=== PATIENT | male | born 1960 | race Caucasian/White ===

== ENCOUNTER 2017-08-03 08:49 | Emergency (ER) | payer BC ==
[~2017-08-03] VITALS: Ht 172.7 cm; Wt 97.5 kg
[2017-08-03] MEDS ORDERED: BP MEDS (08:58)
[2017-08-03] MEDS ORDERED: CRESTOR (08:58)
[2017-08-03] MEDS ORDERED: INVOCANA (08:58)
--- NOTE | 2017-08-03 09:15 | NUR ---
Dr. Roca at bedside for MSE.
[2017-08-03] MEDS ORDERED: ONDANSETRON 4 MG/2 ML VIAL IV ONE (09:30)
[2017-08-03] MEDS ORDERED: IV NORMAL SALINE 1000 ML BAG IV ONE (09:30)
[2017-08-03] MEDS ORDERED: ONDANSETRON 4 MG/2 ML VIAL ONE (09:40)
[2017-08-03 10:00] LABS: BASOPHILS % (AUTO) 0.3 % (0.0-2.0); HEMATOCRIT 56.2 % (36.7-47.1); LYMPHOCYTES # (AUTO) 0.3 K/uL (20.0-40.0); LYMPHOCYTES % (AUTO) 1.5 % (20.5-51.5); MEAN CORPUSCULAR HEMOGLOBIN 28.7 uug (23.8-33.4); MEAN CORPUSCULAR HGB CONC 34 g/dL (32.5-36.3); MEAN CORPUSCULAR VOLUME 84.9 fL (73.0-96.2); MONOCYTES # (AUTO) 0.4 K/uL (2.0-10.0); MONOCYTES % (AUTO) 2.1 % (0.0-11.0); NEUTROPHILS # (AUTO) 16.7 K/uL (1.8-8.9); NEUTROPHILS % (AUTO) 96.1 % (38.5-71.5); PLATELET COUNT (AUTO) 150 K/uL (152-348); WHITE BLOOD COUNT (AUTO) 17.4 K/uL (3.6-10.2)
[2017-08-03 10:01] LABS: RED BLOOD CELL COUNT(AUTO) 6.62 MIL/uL (4.06-5.63)
[2017-08-03 10:05] LABS: CREATININE 1.5 mg/dL (0.6-1.3); POTASSIUM 3.6 mmol/L (3.5-5.1)
[2017-08-03 10:10] LABS: BILIRUBIN,DIRECT 0.1 mg/dL (0.0-0.2); BILIRUBIN,TOTAL 0.8 mg/dL (0.2-1.0); TOTAL PROTEIN, SERUM 8.3 g/dL (6.4-8.2)
--- NOTE | 2017-08-03 10:22 | NUR ---
Patient reports still nauseaus.
[2017-08-03 10:23] LABS: BAND % (MANUAL) 2 % (0-10); LYMPHOCYTES % (MANUAL) 1 % (20-40); MONOCYTES % (MANUAL) 2 % (2-10); NEUTROPHILS % (MANUAL) 95 % (42-75)
[2017-08-03] MEDS ORDERED: KETOROLAC TROMETHAMINE 30 MG INJ IVP ONE (10:30)
[2017-08-03] MEDS ORDERED: METOCLOPRAMIDE HCL 10 MG/2 ML VIAL IV ONE (10:30)
[2017-08-03] MEDS ORDERED: IV NS 1000 ML 1,000 ML IV ONE ×2 (10:39→11:54)
--- NOTE | 2017-08-03 10:48 | NUR ---
Patient had emesis. Reports pain on left middle quadrant.
[2017-08-03] MEDS ORDERED: METOCLOPRAMIDE HCL 10 MG/2 ML VIAL ONE (10:54)
[2017-08-03] MEDS ORDERED: KETOROLAC TROMETHAMINE 30 MG INJ ONE (10:54)
[2017-08-03 12:51] VITALS: BP 145/85
== END 2017-08-03 12:45 | disposition home or self-care (01) ==
LOC: ER 08:49
DX: R11.2 Nausea with vomiting, unspecified (principal); R19.7 Diarrhea, unspecified; R10.9 Unspecified abdominal pain; I10 Essential (primary) hypertension
CPT/HCPCS: 36415; 83690; 85025; A4663; J1885; J2405; J2765; J7030